=== PATIENT | female | born 1950 | race Caucasian/White ===

== ENCOUNTER 2023-07-13 10:28 | Day surgery (SDC) | payer BC, SELFPAY ==
[2023-07-13] VITALS (14 sets, daily range): BP systolic 115–152; BP diastolic 49–113; BMI 32.1
[2023-07-13] MEDS: NSS 500 IV (11:31)
[2023-07-13] MEDS: VANCOCIN 300 MG IV (11:52)
[2023-07-13] MEDS: VANCOCIN 300 ML IV (11:52)
[2023-07-13] MEDS: AZACTAM 2000 MG IV (12:37)
[2023-07-13] MEDS: TYLENOL 650 MG PO (15:02)
--- NOTE | 2023-07-13 15:26 | ITS.CL.PACE ---
[facility] - Pacemaker Implant
Pacemaker Implant
Procedure Report:
PACEMAKER IMPLANT REPORT
Primary Care Provider: Dr Eduardo Rivera
Primary mail courier: Dr Benton Jewell
Date of Procedure: 07/13/23
Procedure:
Implantation of dual-chamber permanent pacemaker utilizing the left bundle branch for conduction system pacing
Indication/Diagnosis:
Non-reversible symptomatic bradycardia due to sinus node dysfunction and second atrioventricular block.
After informed consent was obtained, 'time out' was called and confirmed, the patient was prepped and draped in a sterile fashion. Lidocaine with epi was used for local anesthesia. Central venous access was obtained via subclavian venipuncture. An
incision was made along the left chest and a pre-pectoral pocket was formed. Using a Seldinger technique and peel-away sheaths, the pacing leads were placed under fluoroscopic guidance.
Fluoroscopy was used to determine likely anatomic site for left bundle branch pacing. The Medtronic C315 sheath was used to deliver the Medtronic 3830 Selectsecure pacing lead with the helix exposed just exposed from the sheath tip during continuous
monitoring when pacemapping the septum during gentle clockwise rotation to obtain a paced QRS morphology of a W pattern in lead V1. Once the suspected optimal site was identified, lead deployment was performed with several rapid rotations as paced
QRS morphology was intermittently monitored until a paced QRS complex in lead V1 demonstrated development of an R wave (Qr).
Unipolar pacing impedance dropped by approximately 200 ohms suggesting it had reached the left ventricular subendocardial.
Stable VEgm injury current is present throughout lead position and at end of case.
Final unipolar pacing impedance is 900 Ohms
Unipolar pacing threshold is stable at 1 V @ 0.4 ms.
Final conduction system paced QRS complex duration is 85 ms
LVAT is 69 ms and peak V5 -> peak V1 timing is 66ms
Right atrial lead was placed at the RAA.
Once testing (see below) showed adequate and stable function, the leads were secured using the suture sleeves. The pocket was liberally irrigated with antibiotic solution. The leads were connected to the generator header and the leads and
generator were placed within the pocket. Fluoroscopy confirmed stable lead position. The pocket was closed in the typical fashion.
IMPLANTS:
Medtronic [id number], SN: [id number], Left Pectoral
RA: Medtronic 5076-45, SN: [id number], RAA
RV: Medtronic 3830 , SN:[id number], Interventricular septum at LBB
DEVICE TESTING:
Sensing: RA 2 mV, RV 6.7 mV
Capture: RA 1 V@0.4ms, RV 1 V@0.4ms
Ohms: RA 551, RV 760
FINAL PROGRAMMING
Norberto Pacing: AAIR+ 45-130 ppm with rate drop hysteresis programmed on
COMPLICATIONS:
None
CONCLUSIONS:
Successful implant of dual chamber permanent pacemaker utilizing Left Bundle Branch conduction system capture for pacing.
RECOMMENDATIONS:
1. Post-op care (tele, CXR, IV abx)
2. In-Office wound check in 5-7 days
Copy to:
Dr Eduardo Rivera
Dr Benton Jewell
--- NOTE | 2023-07-13 15:42 | W.PN.UPDATE ---
Update Note
Progress Note Update
73 yo WF s/p DC PPM (same day). Site stable, tele SR, CXR no PTX, no cp, sob, ravinder diet, voiding. Activity restrictions reviewed. She has inc check apt in 1 week. She is for d/c home after 430p.
CONCLUSIONS:
Successful implant of dual chamber permanent pacemaker utilizing Left Bundle Branch conduction system capture for pacing.
RECOMMENDATIONS:
1. Post-op care (tele, CXR, IV abx)
2. In-Office wound check in 5-7 days
Copy to:
Dr Eduardo Rivera
Dr Benton Jewell
== END 2023-07-13 16:32 | disposition home or self-care (01) ==
LOC: CATH 10:28
PROVIDERS: ATTENDING PHYSICIAN Internal Medicine Cardiovascular Disease; FAMILY PHYSICIAN Family Medicine; OTHER PHYSICIAN Internal Medicine Cardiovascular Disease
DX: I49.5 Sick sinus syndrome (principal); I44.1 Atrioventricular block, second degree; I10 Essential (primary) hypertension; R55 Syncope and collapse; Z88.1 Allergy status to other antibiotic agents; Z88.2 Allergy status to sulfonamides; Z88.5 Allergy status to narcotic agent; G47.33 Obstructive sleep apnea (adult) (pediatric); Z79.82 Long term (current) use of aspirin
CPT/HCPCS: 33208; 71045; 93005; C1769; C1785; C1892; C1898; Q9967